=== PATIENT | female | born 1985 | race Caucasian/White ===

== ENCOUNTER 2023-07-18 15:51 | Observation (INO) | payer BC ==
[2023-07-18 16:00] VITALS: BMI 35.2
[2023-07-18 17:17] LABS: BASO % 0.8 % (0-2.0); EOS % 0.9 % (0-4.5); HEMATOCRIT 15.5 % (32.4-45.2); LYMPH % 29.4 % (8-40); MCH 25.1 pg (25.7-33.7); MCHC 30.8 g/dl (32.0-36.0); MEAN CELL VOLUME 81.5 fl (80-96); MEAN PLT VOLUME 7.4 fl (7.5-11.1); MONO % 7.3 % (3.8-10.2); NEUT % 61.6 % (42.8-82.8); PLATELET COUNT 595 10^3/uL (134-434); RDW 19.6 % (11.6-15.6); WHITE BLOOD COUNT 11.4 K/mm3 (4.0-10.0)
[2023-07-18 17:26] LABS: HEMOGLOBIN 4.8 GM/dL (10.7-15.3)
[2023-07-18 17:33] LABS: POTASSIUM 3.7 mmol/L (3.5-5.1)
[2023-07-18 17:35] LABS: CALCIUM 8.6 mg/dL (8.5-10.1)
[2023-07-18 17:36] LABS: BLOOD UREA NITROGEN 9.8 mg/dL (7-18)
[2023-07-18 17:38] LABS: CREATININE 0.5 mg/dL (0.55-1.3)
[2023-07-18 17:40] LABS: BILIRUBIN,TOTAL 0.4 mg/dL (0.2-1); TOT PROT 6.3 g/dl (6.4-8.2)
[2023-07-18] MEDS: FERROUS SO4 325 MG TABLET (FP) PO SCH (22:08)
[2023-07-19 07:54] LABS: BASO % 0.6 % (0-2.0); EOS % 0.9 % (0-4.5); HEMATOCRIT 22.6 % (32.4-45.2); HEMOGLOBIN 7.3 GM/dL (10.7-15.3); LYMPH % 31.1 % (8-40); MCH 25.6 pg (25.7-33.7); MCHC 32.3 g/dl (32.0-36.0); MEAN CELL VOLUME 79.3 fl (80-96); MEAN PLT VOLUME 7.5 fl (7.5-11.1); MONO % 12.2 % (3.8-10.2); NEUT % 55.2 % (42.8-82.8); PLATELET COUNT 478 10^3/uL (134-434); RBC 2.85 M/mm3 (3.60-5.2); RDW 19.6 % (11.6-15.6); WHITE BLOOD COUNT 11.5 K/mm3 (4.0-10.0)
[2023-07-19 10:12] VITALS: BP 111/67; PULSE 78; RESP 20; TEMP 98.8
== END 2023-07-19 11:20 | disposition home or self-care (01) ==
LOC: JER 15:51 → JERBED 17:29 → J8W 20:01
PROVIDERS: ADMIT Internal Medicine; ATTEND Internal Medicine
PROC: 30233N1 Transfusion of Nonautologous Red Blood Cells into Peripheral Vein, Percutaneous Approach (ICD-10-PCS; principal; 2023-07-18)
DX: D64.9 Anemia, unspecified (principal); N93.9 Abnormal uterine and vaginal bleeding, unspecified; Z87.59 Personal history of other complications of pregnancy, childbirth and the puerperium
CPT/HCPCS: 36415; 36430; 80053; 82728; 83540; 83550; 84466; 85025; 86850; 86900; 86901; 86922; 93005; 93010; 99285-25; G0378; P9038; P9058

== ENCOUNTER 2023-07-22 04:18 | Day surgery (SDC) | payer BC ==
[2023-07-19 10:31] VITALS: BMI 29.7
[2023-07-22 06:51] VITALS: RESP 20
[2023-07-22 07:05] LABS: HEMATOCRIT 25.5 % (32.4-45.2); HEMOGLOBIN 8.3 GM/dL (10.7-15.3); MCH 26.1 pg (25.7-33.7); MCHC 32.7 g/dl (32.0-36.0); MEAN CELL VOLUME 79.9 fl (80-96); MEAN PLT VOLUME 7.2 fl (7.5-11.1); PLATELET COUNT 523 10^3/uL (134-434); RBC 3.19 M/mm3 (3.60-5.2); RDW 20.4 % (11.6-15.6); WHITE BLOOD COUNT 13.2 K/mm3 (4.0-10.0)
[2023-07-22] MEDS ORDERED: ACETAMINOPHEN 325 MG TABLET (FP) PO PRN (07:45)
[2023-07-22] MEDS ORDERED: IBUPROFEN 400 MG TABLET (FP) PO PRN (07:45)
[2023-07-22] MEDS ORDERED: LIDOCAINE HCL/PF 2% SDV 5ML VIAL ONE (08:03)
[2023-07-22] MEDS ORDERED: FENTANYL CITRATE/PF 50 MCG/ML VIAL ONE (08:03)
[2023-07-22] MEDS ORDERED: PROPOFOL 20 ML ONE (08:03)
[2023-07-22] MEDS ORDERED: MIDAZOLAM HCL 2 MG/2 ML SINGLE DOSE VIAL ONE (08:03)
[2023-07-22] MEDS ORDERED: DEXAMETHASONE SOD PHOSPHATE 4 MG/1 ML VIAL ONE (08:58)
[2023-07-22] MEDS: ceFAZolin SODIUM 1 GM VIAL IVPB ONE ×3 (09:05→09:15)
[2023-07-22] MEDS ORDERED: ceFAZolin SODIUM 1 GM VIAL ONE (09:26)
[2023-07-22] MEDS ORDERED: KETOROLAC TROMETHAMINE 30 MG/1 ML VIAL ONE (09:26)
[2023-07-22] MEDS ORDERED: ONDANSETRON 4 MG/2 ML VIAL ONE (09:26)
[2023-07-22] MEDS ORDERED: PROMETHAZINE HCL 25 MG/1 ML VIAL IVPB PRN (09:47)
[2023-07-22] MEDS ORDERED: ONDANSETRON 4 MG/2 ML VIAL IVPUSH PRN (09:47)
[2023-07-22] MEDS ORDERED: oxyCODONE HCL 5 MG TABLET PO PRN ×2 (09:47)
[2023-07-22] MEDS: ACETAMINOPHEN 1000 MG/100 ML BAG IVPB ONE (10:00)
[2023-07-22] MEDS ORDERED: LACTATED RINGERS SOLUTION 1,000 ML IV SCH (10:00)
[2023-07-22 13:32] VITALS: BP 95/54; PULSE 78; TEMP 97.8
== END 2023-07-22 13:15 | disposition home or self-care (01) ==
LOC: JASU-SURG 04:18
PROVIDERS: ATTEND Obstetrics & Gynecology
PROC: 10D17ZZ Extraction of Products of Conception, Retained, Via Natural or Artificial Opening (ICD-10-PCS; principal; 2023-07-22 08:30)
DX: O03.4 Incomplete spontaneous abortion without complication (principal)
CPT/HCPCS: 36415; 85027; 86850; 86900; 86901; 88305-TC; 94760; J0131